=== PATIENT | female | born 2000 | race Caucasian/White ===

== ENCOUNTER → 2019-06-13 | Outpatient (CLI) | payer OTHER ==
--- NOTE | 2019-06-13 13:41 | 2DMMODE ---
[place] [address] 2 D/M-MODE ECHOCARDIOGRAM Name: BANG LEE Room: [facility]#: [id number] Admission: 06/13/19 Attend Phys: Nikko De Dios, Discharge: Date of : 89 Date of Service: 06/13/19 1341 Report #: [id number] THIS REPORT FOR: //name// APPROVED REPORT Study performed: 06/13/2019 07:59:17 EXAM: Comprehensive 2D, Doppler, and color-flow Echocardiogram Patient Location: Out-Patient BSA: 2.02 HR: 70 bpm BP: 120/80 mmHg Other Information Study Quality: Excellent Indications Syncope 2D Dimensions IVSd: 9.89 (7-11mm) LVOT Diam: 19.68 (18-24mm) LVDd: 45.79 mm PWd: 9.01 (7-11mm) Ascending Ao: 23.85 (22-36mm) LVDs: 23.16 (25-40mm) Aortic Root: 21.19 mm Volumes Left Atrial Volume (Systole) LA ESV Index: 15.90 mL/m2 Aortic Valve AoV Peak Prabhu.: 1.24 m/s AO Peak Gr.: 6.16 mmHg LVOT Max P.42 mmHg AO Mean Gr.: 3.23 mmHg LVOT Mean P.20 mmHg LVOT Max V: 0.78 m/s AO V2 VTI: 24.37 cm LVOT Mean V: 0.50 m/s MAITE (VTI): 2.14 cm2 LVOT V1 VTI: 17.10 cm Mitral Valve E/A Ratio: 2.42 MV Decel. Time: 176.12 ms MV E Max Prabhu.: 1.03 m/s MV PHT: 51.07 ms MVA (PHT): 4.31 [place] [address] 2 D/M-MODE ECHOCARDIOGRAM Name: ROSABANG Room: [facility]#: [id number] Admission: 06/13/19 Attend Phys: Nikko De Dios, Discharge: Date of : 89 Date of Service: 06/13/19 1341 Report #: [id number] TDI E/Lateral E': 5.72 E/Medial E': 6.06 Medial E' Prabhu.: 0.17 m/s Lateral E' Prabhu.: 0.18 m/s Pulmonary Valve PV Peak Prabhu.: 0.97 m/s PV Peak Gr.: 3.73 mmHg Left Ventricle The left ventricle is normal size. There is normal LV segmental wall motion. There is normal left ventricular wall thickness. Left ventricular systolic function is normal. The left ventricular ejection fraction is within the normal range. LVEF is 60-65%. The left ventricular diastolic function is normal. Right Ventricle The right ventricle is normal size. The right ventricular systolic function is normal. Atria The left atrium size is normal. The right atrium size is normal. Aortic Valve The aortic valve is normal in structure. No aortic regurgitation is present. There is no aortic valvular stenosis. Mitral Valve The mitral valve is normal in structure. There is no mitral valve regurgitation noted. No evidence of mitral valve stenosis. Tricuspid Valve The tricuspid valve is normal in structure. There is no tricuspid valve regurgitation noted. Pulmonic Valve The pulmonary valve is normal in structure. Trace pulmonic regurgitation. Great Vessels The aortic root is normal in size. IVC is normal in size and collapses >50% with inspiration. Pericardium There is [place] [address] 2 D/M-MODE ECHOCARDIOGRAM Name: BANG LEE Room: [facility]#: [id number] Admission: 06/13/19 Attend Phys: Nikko De Dios, Discharge: Date of : 89 Date of Service: 06/13/19 1341 Report #: [id number] <Conclusion> Left ventricular systolic function is normal. The left ventricular ejection fraction is within the normal range. <ELECTRONICALLY SIGNED> By: Shiv Willis MD, FACC 06/13/191340 40 40 Shiv Willis MD, [facility] /INF
== END ==
LOC: M.CRD 06-08 07:35
DX: R55 Syncope and collapse (principal)

== ENCOUNTER → 2019-12-13 | Outpatient (CLI) | payer OTHER ==
[2019-12-13] VITALS (13 sets, daily range): BP systolic 11–141; BP diastolic 44–93
--- NOTE | ~2019-12-13 | CARD ---
[address] [address] CARDIAC CATH REPORT Name: ROSABANG J Room: [facility]#: [id number] Admission: 12/13/19 Attend Phys: Nikko De Dios MD Discharge: Date of : 89 Report #: [id number] THIS REPORT FOR: //name// cc: Erick Aranda MD, Dean L. MD ~ CC: Erick De Dios CARDIAC PROCEDURE INDICATION: Syncope. PROCEDURE: Tilt-table test. DESCRIPTION OF PROCEDURE: After informed consent was obtained, the patient was brought to the cardiac catheterization lab. Initial vital signs were checked and deemed to be satisfactory. Orthostatic blood pressures were checked. The patient was not found to be significantly orthostatic. The patient was then placed on the tilt table and secured with the designated straps. The tilt table was then tilted up to 70 degrees. Blood pressure, heart rate, and oxygen saturations as well as level of consciousness were monitored every 2 minutes for 20 minutes. The patient's blood pressure and heart rate remained stable for the initial 20 minutes of the tilt-table test. At this point in time, the patient was then given sublingual nitroglycerin to produce vasodilation and hypotension. Her vital signs were stable with a blood pressure of 141/93 and a pulse rate of 97. The patient's vital signs remained stable for approximately 5 minutes after receiving nitroglycerin sublingually. At this point in time, the patient's blood pressure began to fall. She had an inappropriate decrease in her pulse rate and became syncopal. The tilt table was returned to the supine position and the patient recovered in usual fashion. IMPRESSION: Positive tilt-table test indicating neurocardiogenic syncope. CONCLUSION AND RECOMMENDATIONS: 1. Neurocardiogenic syncope. 2. Avoid dehydration. Continue to ensure adequate volume intake. 3. No indication for pacemaker at this time. By: [id number] De Dios MD, FACC /nt
== END | disposition home or self-care (01) ==
LOC: M.CL 09:18
PROVIDERS: ATTEND Internal Medicine Cardiovascular Disease
DX: R55 Syncope and collapse (principal)